=== PATIENT | female | born 1990 | race Caucasian/White ===

== ENCOUNTER 2018-12-03 14:05 | Inpatient (IN) | payer OTHER ==
[~2018-12-03] VITALS: Ht 154.9 cm; Wt 70.3 kg
[~2018-12-03 14:05] MED LIST: AMOX1XR PO; Amoxicillin500 MG PO; CODACE30 PO; HYDACE5 PO; IBUHYD PO; IBUP400 PO; Keflex500 MG PO; LANS30EC PO; MULVITMINE; Norco 5-325 Ta1 EACH PO; PENVK500 PO; POLY17UD PO; Pyridium100 MG PO; SULTRIDS PO; TRAM50 PO
[2018-12-03 15:03] LABS: BASOPHILS ABSOLUTE AUTO 0.03 K/mm3 (0.00-0.23); BASOPHILS PERCENT AUTO 0 % (0-2); EOSINOPHILS ABSOLUTE AUTO 0.02 K/mm3 (0.00-0.68); EOSINOPHILS PERCENT AUTO 0 % (0-6); Hematocrit 36.5 % (33.0-51.0); IMMATURE GRAN ABSOLUTE AUTO 0.05 K/mm3 (0.00-0.10); IMMATURE GRAN PERCENT AUTO 0 % (0-1); LYMPHOCYTES ABSOLUTE AUTO 2.04 K/mm3 (0.84-5.20); LYMPHOCYTES PERCENT AUTO 14 % (21-46); MONOCYTES PERCENT AUTO 5 % (4-13); Mean Corpuscular HGB 27.7 pg (26.0-34.0); Mean Corpuscular HGB Conc 32.9 g/dL (31.5-36.5); Mean Corpuscular Volume 84 fL (80-100); Mean Platelet Volume 10.7 fL (9.1-12.4); NEUTROPHILS ABSOLUTE AUTO 11.65 K/mm3 (1.96-9.15); NEUTROPHILS PERCENT AUTO 81 % (41-73); Platelet Count 345 K/mm3 (150-400); RDW Coefficient Variation 13.4 % (11.7-14.2); Red Blood Cell Count 4.33 M/mm3 (3.80-5.20); White Blood Cell Count 14.49 K/mm3 (4.00-11.30)
[2018-12-03] MEDS ORDERED: SUBOXONE 4 MG-1 EACH PO (15:50)
--- NOTE | 2018-12-03 15:50 | NUR ---
PT OFFERED TORDAL, DECLINES, REPORTS DOESNT TAKE ANYTHING AFTER DELIVERY, REPORTS WENT BACK TO [facility] 2 DAYS LATER AFTER LAST BABY. PT IS AWARE SHE JUST NEEDS TO ASK AND WE CAN GIVE HER SOMETHING FOR PAIN WHEN BLEEDING IS STABLE WILL TAKE OUT SL. 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
--- NOTE | 2018-12-03 18:38 | NUR ---
pt reports voiding in shower,
--- NOTE | 2018-12-03 20:18 | NUR ---
ON ARRIVAL TO SHIFT, PT SITTING WITH IN ARMS WANTING TO GO OUT AND SMOKE, VSS, BLEEDING WNL, DENIES PAIN OR NEED FOR PAIN MEDICATION. PT DESIRES TO GO OUT TO SMOKE AND LEAVE WITH NURSING STAFF. MINIMAL EYE CONTACT WITH RN, BUT AGREEABLE TO IV BEING REMOVED PRIOR TO GOING OUTSIDE. IV REMOVED, PT BACK TO ROOM WITH AND FOB IN ROOM. CALL LIGHT WITHIN REACH, PT DENIES ANY NEED AT THIS TIME.
--- NOTE | 2018-12-04 05:20 | NUR ---
PT BEHAVIOR TO WAREHOUSE PRICING AND INVENTORY CLERK AND LAB ENTERED ROOM AT 0505 TO DO LAB DRAW ON PT, VS ON PT AND BABY, AND DO PAMELA SCORES ON BABY. UPON ENTERING THE ROOM PT HAD HER EYES OPEN AND HAD BEEN OUT TO THE DESK APPROX 15-20 MINUTES PRIOR LOOKING FOR SNACKS. LAB WAS EXPLAINED TO PT WHO THEN GOT VERY ANGRY AND WAS RUDE TO BOTH LAB AND RN. SHE STATED THAT IF WE WANTED A DRUG SCREEN WE SHOULD JUST SAY SO. RN EXPLAINED THE PURPOSE OF THE CBC TO ASSESS BLOOD LOSS IN L/D. PT STILL ANGERED WOULD NOT LISTEN AND JUST KEPT SAYING "WELL, I HAVE NEVER HEARD OF THIS." RN BEGAN TO ASSESS BABY AND AGAIN PT WAS ANGERED. PT STATED THAT HIS FIRST DIAPER WAS "RIGHT HERE" (IN HER HAND) SINCE WE JUST INSISTED ON LEAVING IT ON HIM ALL NIGHT AND WAS ANNOYED THAT WE KEPT CHECKING IT. DIAPER PT HANDED RN WAS INFACT DRY, SO NEW DRUG DIAPER WAS PLACED ON BABY. PT WAS ANGERED RN UNWRAPPED BABY AND WHEN PAMELA SCORING WAS EXPLAINED SHE AGRESSIVELY STATE "WELL, I THINK HE IS FINE." RN THEN ASKED HOW THE LAST FEED WENT. PT REPLIED IN A HARSH TONE THAT HE JUST ATE, BUT WAS UNSURE HOW LONG BECAUSE SHE FELL ASLEEP. BABY WAS NOTED TO BE SUCKING ON PACIFIER AT THIS TIME. RN THEN SWADDLED BABY AND ASKED THE PT IF THERE WAS ANYTHING SHE NEEDED/WANTED. PT JUST BECAME ANGERED THAT THE BABY HAD BEEN SWADDLED AND UNWRAPPED HIM THEN LEFT TO GO SMOKE. RN ALSO REMOVED SEVERAL EXTRA BLANKETS FROM THE BABY'S CRIB.
[2018-12-04 05:21] LABS: BASOPHILS ABSOLUTE AUTO 0.04 K/mm3 (0.00-0.23); BASOPHILS PERCENT AUTO 0 % (0-2); EOSINOPHILS ABSOLUTE AUTO 0.04 K/mm3 (0.00-0.68); EOSINOPHILS PERCENT AUTO 0 % (0-6); Hematocrit 33.5 % (33.0-51.0); Hemoglobin 10.8 g/dL (11.5-16.0); IMMATURE GRAN ABSOLUTE AUTO 0.06 K/mm3 (0.00-0.10); IMMATURE GRAN PERCENT AUTO 1 % (0-1); LYMPHOCYTES ABSOLUTE AUTO 3.16 K/mm3 (0.84-5.20); LYMPHOCYTES PERCENT AUTO 24 % (21-46); MONOCYTES ABSOLUTE AUTO 0.72 K/mm3 (0.16-1.47); MONOCYTES PERCENT AUTO 6 % (4-13); Mean Corpuscular HGB 27.7 pg (26.0-34.0); Mean Corpuscular HGB Conc 32.2 g/dL (31.5-36.5); Mean Corpuscular Volume 86 fL (80-100); Mean Platelet Volume 10.6 fL (9.1-12.4); NEUTROPHILS ABSOLUTE AUTO 9.11 K/mm3 (1.96-9.15); NEUTROPHILS PERCENT AUTO 69 % (41-73); Platelet Count 302 K/mm3 (150-400); RDW Coefficient Variation 13.7 % (11.7-14.2); RDW Standard Deviation 42.8 fL (35.1-46.3); White Blood Cell Count 13.13 K/mm3 (4.00-11.30)
--- NOTE | 2018-12-04 12:37 | NUR ---
1220 [facility] HERE TO TALK WITH PATIENT. 1 PURCHASE PRICE ANALYST WITH PATIENT AND ONE SEPARTELY WITH S/O
[2018-12-04] MEDS ORDERED: IBUP800 PO (13:44)
--- NOTE | 2018-12-04 14:32 | NUR ---
1300 [facility] IS REMOVING BABY FROM PARENTS CUSTODY, THEY HAVE COURT ON FRIDAY. 1320 SCRIPT FOR BUPRINORPHINE-NALOXONE 4-1MG GIVEN TO PT WITH MOTRIN 800MG SCRIPT. 1420 DC TEACHING GONE OVER WITH PT, DECLINES ANY QUESIOTNS HOLDING BABY, CRYING, FOB CRYING, THEY ARE AWARE THEY WILL DISCHARGE OUT AT 1500 AND THAT THEY WILL NOT BE ABLT TO COME BACK AND SEE BABY AND THAT IS THEY CALL THEY WILL NOT BE TOLD ANYTHING. THEY ARE AWARE THE BABY WILL BE HERE FOR 4-5 DAYS TO WATCH FOR WITHDRAWL. 1430 MOM HOLDING BABY CRYING, FOB AT BEDSIDE TEARFUL ALSO
--- NOTE | 2018-12-04 15:00 | NUR ---
PT DC HOME WITH SO (BARBARA) THEY BROUGHT BABY OUT OF ROOM AND WERE WALKED OUT BY RN. BABY TO OBT
== END 2018-12-04 15:05 | disposition home or self-care (01) | DRG 807 ==
LOC: OBS 14:05 → BC 14:06 → OBS 14:40 → BC 14:41
PROVIDERS: ADMIT Obstetrics & Gynecology
PROC: 10E0XZZ Delivery of Products of Conception, External Approach (ICD-10-PCS; principal; 2018-12-03)
DX: O99.324 Drug use complicating childbirth (principal); Z37.0 Single live birth; F19.90 Other psychoactive substance use, unspecified, uncomplicated; Z3A.38 38 weeks gestation of pregnancy; O99.334 Smoking (tobacco) complicating childbirth; F17.200 Nicotine dependence, unspecified, uncomplicated
CPT/HCPCS: 36415; 85025; J0290; J2210; J2590; J7120

== ENCOUNTER 2024-02-07 21:36 | Emergency (ER) | payer OTHER ==
[~2024-02-07] VITALS: Ht 157.5 cm; Wt 68.5 kg
[~2024-02-07 21:36] MED LIST changes: +IBUP800 PO; +SUBOXONE 4 MG-1 EACH PO
[2024-02-07] MEDS ORDERED: HYDHCL25 PO (22:14)
[2024-02-07] MEDS ORDERED: HyDROXyzine HCl 25 MG Tab PO ONE (22:15)
[2024-02-07 22:28] VITALS: BP 118/70
== END 2024-02-07 22:27 | disposition home or self-care (01) ==
LOC: ER 21:36
DX: R00.2 Palpitations (principal); F41.9 Anxiety disorder, unspecified; F17.200 Nicotine dependence, unspecified, uncomplicated; Z79.899 Other long term (current) drug therapy
CPT/HCPCS: 93005; 93010; 99284-25; A9270

== ENCOUNTER → 2025-04-12 | Outpatient (CLI) | payer OTHER ==
[~2025-04-12] MED LIST changes: +HYDHCL25 PO
[2025-04-13 12:50] LABS: Candida glabrata-krusei, PCR NOT DETECTED (NOT DETECT)
[2025-04-13 12:54] LABS: Bacterial Vaginosis PCR Positive (NEGATIVE); Candida Group, PCR DETECTED (NOT DETECT)
[2025-04-15 07:54] LABS: C. TRACHOMATIS BY TMA,THINPREP Negative (Negative); N. GONORRHOEAE BY TMA,THINPREP Negative (Negative)
== END ==
LOC: LAB 17:48 → LAB SHORT 17:48
PROVIDERS: Nurse Practitioner Family
DX: Z01.419 Encounter for gynecological examination (general) (routine) without abnormal findings (principal); R30.0 Dysuria; Z11.3 Encounter for screening for infections with a predominantly sexual mode of transmission
CPT/HCPCS: 81515; 87077; 87086; 87186; 87491; 87591; 87624; G0145